=== PATIENT | female | born 1975 | race Two or more races ===

== ENCOUNTER 2018-09-06 13:30 | Emergency (ER) | payer MEDICAID, OTHER ==
[~2018-09-06] VITALS: Ht 134.6 cm; Wt 78.0 kg
--- NOTE | 2018-09-06 13:48 | NUR ---
ED Nurse Note: PT WALKED IN TO ER TODAY FROM HOME. AOX4. PT C/O HEADACHE X 2 WEEKS AGO AFTER FALL IN [place]. PT STATES SHE HIT THE LEFT SIDE OF HER HEAD BUT DENIES ANY LOC. PT STATES SHE WAS SEEN AT [facility] X 2 DAYS AGO AND WAS TOLD SHE WAS CLEARED TO BE DISCHARGED BUT CAME IN TODAY DUE TO PERSISTENT PAIN. PT WOULD LIKE TO MAKE SURE SHE IS OKAY. GAIT STEADY. PT DENIES DIZZINESS, NAUSEA OR VOMITING.
[2018-09-06 13:49] VITALS: BP 118/82
[2018-09-06 14:32] VITALS: BP 122/80
--- NOTE | 2018-09-06 14:33 | Emergency Room Report ---
History of Present Illness General Chief Complaint: Headache Source: Patient Present Illness HPI 43-year-old female presents to the emergency department complaining of 9 out of 10 in severity localized pain, tenderness, swelling and palpable lump to the left parietal area of her scalp. Patient status post mechanical trip and fall where she hit her head 2 weeks ago. Patient states she was evaluated in an emergency department and was discharged with prescription for Tylenol. Patient states that she did not get evaluated until 2 days ago. She denies nausea vomiting, dizziness, visual changes. Patient denies fevers or chills, swollen tender lymph nodes, or purulent discharge. Denies numbness tingling or loss of sensation or gross motor movements of the extremities, incontinence of bowel or bladder. Denies CP, Palpitations, LOC, AMS, weakness or a sudden severe headache. Allergies: Coded Allergies: No Known Allergies (Unverified , 09/06/18) Patient History Past Medical History: see triage record Past Surgical History: none Pertinent Family History: none Last Menstrual Period: now Now: No Reviewed Nursing Documentation: PMH: Agreed; PSxH: Agreed Nursing Documentation-PMH Past Medical History: No Stated History Review of Systems All Other Systems: negative except mentioned in HPI Physical Exam Vital Signs Date Time Temp Pulse Resp B/P (MAP) Pulse Ox O2 Delivery O2 Flow Rate FiO2 09/06/18 13:39 97.9 83 20 114/81 98 09/06/18 13:49 Room Air Sp02 EP Interpretation: reviewed, normal General Appearance: no apparent distress, alert, GCS 15, non-toxic Head: normocephalic, other - palpable superficial mass, somewhat mobile with some erythema, no obvious opening or drainage, no bruising, no evidence of skull fx. Eyes: bilateral eye normal inspection, bilateral eye PERRL ENT: hearing grossly normal, normal voice, TMs + canals normal Neck: full range of motion, no bony tend Respiratory: lungs clear, normal breath sounds, speaking full sentences Cardiovascular #1: regular rate, rhythm Musculoskeletal: back normal, gait/station normal, normal range of motion, non- tender Neurologic: alert, oriented x3, responsive, motor strength/tone normal, sensory intact, normal gait, speech normal, no pronator, other - no facial droop , no gross motor weakness, grossly normal Psychiatric: judgement/insight normal Skin: normal color, warm/dry, well hydrated, other - palpable superficial mass , somewhat mobile with some erythema, no obvious opening or drainage, no bruising, Lymphatic: no adenopathy Medical Decision Making PA Attestation Dr. Swenson is my supervising Physician whom patient management has been discussed with. Diagnostic Impression: Primary Impression: Inflamed epidermoid cyst of skin Additional Impression: Lipoma Qualified Codes: D17.0 - Benign lipomatous neoplasm of skin and subcutaneous tissue of head, face and neck ER Course 43-year-old female presents to the emergency department complaining of 9 out of 10 in severity localized pain, tenderness, swelling and palpable lump to the left parietal area of her scalp. Patient status post mechanical trip and fall where she hit her head 2 weeks ago. Patient states she was evaluated in an emergency department and was discharged with prescription for Tylenol. Patient states that she did not get evaluated until 2 days ago. She denies nausea vomiting, dizziness, visual changes. Patient denies fevers or chills, swollen tender lymph nodes, or purulent discharge. Denies numbness tingling or loss of sensation or gross motor movements of the extremities, incontinence of bowel or bladder. Denies CP, Palpitations, LOC, AMS, weakness or a sudden severe headache. Ddx considered but are not limited to cellulitis, abscess, cystic acne, necrotizing fasciitis, insect bite. Vital signs: are WNL, pt. is afebrile H&PE are most consistent with wither inflamed lipoma or deep epidermoid cyst of the parietal scalp, no evidence to suggest skull fx or acute intracranial pathology. ORDERS: none required at this time, the diagnosis is clinical --She initially really wanted to have had imaging performed I discussed with this patient extensively with a marketing communications leader that I do not feel the benefits of having a CAT scan with very low suspicion of head injury would outweigh the radiation exposure. She later agreed. and CT was canceled. ED INTERVENTIONS: - none required at this time DISCHARGE: At this time pt. is stable for d/c to home. Will provide printed patient care instructions, and any necessary prescriptions. Care plan and follow up instructions have been discussed with the patient prior to discharge. Last Vital Signs Date Time Temp Pulse Resp B/P (MAP) Pulse Ox O2 Delivery O2 Flow Rate FiO2 09/06/18 13:49 98.1 76 18 118/82 99 Room Air Disposition: HOME, SELF-CARE Condition: Stable Scripts Cephalexin* (KEFLEX*) 500 Mg Capsule 500 MG ORAL EVERY 12 HOURS for 7 Days, #14 CAP 0 Refills Prov: Harini Ta 09/06/18 Ibuprofen* (MOTRIN*) 400 Mg Tablet 400 MG ORAL THREE TIMES A DAY, #30 TAB 0 Refills Prov: Harini Ta 09/06/18 Patient Instructions: Epidermal Cyst, [id number], Lipoma Additional Instructions: Take medications as directed. Follow up with a Primary Care Provider in 3-5 days for DERMATOLOGY REFERRAL , even if your symptoms have resolved. --Please review list of primary care clinics, if you do not already have a primary care provider Return sooner to ED if new symptoms occur, or current symptoms become worse. - Please note that this Emergency Department Report was dictated using [employer] chair technology software, occasionally this can lead to erroneous entry secondary to interpretation by the dictation equipment. Harini Ta Sep 06, 2018 14:33
[2018-09-06] MEDS ORDERED: IBUPROFEN400 MG ORAL (14:34)
[2018-09-06] MEDS ORDERED: CEPHALEXIN500 MG ORAL (14:34)
--- NOTE | 2018-09-06 14:40 | NUR ---
ED Nurse Note: PT SITTING PEACEFULLY IN BED IN NAD. AOX4. PRESCRIPTIONS AND DISCHARGE PAPERWORK EXPLAINED TO PT. PT VERBALIZES UNDERSTANDING AND ALL QUESTIONS ANSWERED. PRESCRIPTIONS AND DISCHARGE PAPERWORK GIVEN TO PT AND ID WRISTBAND REMOVED. PT WALKED OUT OF ER WITH STEADY GAIT AND ALL BELONGINGS.
== END 2018-09-06 14:40 | disposition home or self-care (01) ==
LOC: EMR 14:05
DX: L72.0 Epidermal cyst (principal); D17.0 Benign lipomatous neoplasm of skin and subcutaneous tissue of head, face and neck
CPT/HCPCS: 99282

== ENCOUNTER 2018-12-06 17:18 | Emergency (ER) | payer MEDICAID ==
[~2018-12-06] VITALS: Ht 144.8 cm; Wt 65.8 kg
[~2018-12-06 17:18] MED LIST: CEPHALEXIN500 MG ORAL; IBUPROFEN400 MG ORAL
[2018-12-06 17:23] VITALS: BP 125/83
[2018-12-06] MEDS ORDERED: NKM (17:25)
[2018-12-06] MEDS ORDERED: EXCEDRIN MIGRA1 EACH PO (17:53)
--- NOTE | 2018-12-06 17:53 | Emergency Room Report ---
History of Present Illness General Chief Complaint: Headache Source: Patient Present Illness HPI 43-year-old female presents to the emergency department complaining of 7 out of 10 severity soreness to the top of her head she states for 2 months. Patient states she did hit her head 3 months ago she fell she states she had CAT scan done which was normal. Patient denies nausea or vomiting. she reports throbbing sensation and states palpable lump. Patient denies fevers or chills she denies visual changes, dizziness, syncope or alterations in mental status. Patient is neck pain or stiffness. Allergies: Coded Allergies: No Known Allergies (Unverified , 09/06/18) Patient History Past Medical History: see triage record Past Surgical History: none Pertinent Family History: none Now: No Reviewed Nursing Documentation: PMH: Agreed; PSxH: Agreed Nursing Documentation-PMH Past Medical History: No Stated History Review of Systems All Other Systems: negative except mentioned in HPI Physical Exam Vital Signs Date Time Temp Pulse Resp B/P (MAP) Pulse Ox O2 Delivery O2 Flow Rate FiO2 12/06/18 17:23 97.9 78 20 125/83 (97) 98 Room Air Sp02 EP Interpretation: reviewed, normal General Appearance: no apparent distress, alert, GCS 15, non-toxic Head: normocephalic, atraumatic, other - palpable mole that most likely is painful/tender secondary to persistent digital manipulation by the pt. NO neurological deficits, No temporal tenderness. no evidence of infection. Eyes: bilateral eye normal inspection, bilateral eye PERRL ENT: hearing grossly normal, normal voice Neck: full range of motion, no meningismus Respiratory: lungs clear, normal breath sounds, speaking full sentences Cardiovascular #1: regular rate, rhythm Rectal: deferred Genitourinary: normal inspection Musculoskeletal: back normal, gait/station normal, normal range of motion, non- tender Neurologic: alert, oriented x3, responsive, motor strength/tone normal, sensory intact, normal gait, speech normal, grossly normal Psychiatric: judgement/insight normal Skin: normal color, no rash, warm/dry, well hydrated, other - palpable mole that most likely is painful/tender secondary to persistent digital manipulation by the pt. NO neurological deficits, No temporal tenderness. no evidence of infection. Lymphatic: no adenopathy Medical Decision Making PA Attestation Dr. Rincon Is my supervising Physician whom patient management has been discussed with. Diagnostic Impression: Primary Impression: Scalp pain Additional Impression: Head pain Qualified Codes: R51 - Headache ER Course 43-year-old female presents to the emergency department complaining of 7 out of 10 severity soreness to the top of her head she states for 2 months. Patient states she did hit her head 3 months ago she fell she states she had CAT scan done which was normal. Patient denies nausea or vomiting. she reports throbbing sensation and states palpable lump. Patient denies fevers or chills she denies visual changes, dizziness, syncope or alterations in mental status. Patient is neck pain or stiffness. Ddx considered but are not limited to migraine, SAH, Pseudomotor Cerebri,, Mass lesion, Cluster RILEY, Tension RILEY, Post lumbar puncture RILEY, contusion, trigeminal neuralgia, temporal arteritis, mole, cellulitis, abscess, lipoma Vital signs: are WNL, pt. is afebrile H&PE are most consistent with palpable mole that most likely is painful/tender secondary to persistent digital manipulation by the pt. NO neurological deficits , No temporal tenderness. no evidence of infection. ORDERS: - none required at this time, dx is clinical. ED INTERVENTIONS: - pt declines motrin. -I do not identify an emergent condition at this time. With current presentation , pt. is stable for close outpatient follow up and conservative treatment. D/ w pt. to return promptly to ED with worsening or new symptoms.- Pt. verbalizes' understanding and agreement with proposed treatment plan. DISCHARGE: At this time pt. is stable for d/c to home. Will provide printed patient care instructions, and any necessary prescriptions. Care plan and follow up instructions have been discussed with the patient prior to discharge. Last Vital Signs Date Time Temp Pulse Resp B/P (MAP) Pulse Ox O2 Delivery O2 Flow Rate FiO2 12/06/18 17:23 97.9 78 20 125/83 98 Room Air Status: improved Disposition: HOME, SELF-CARE Condition: Stable Scripts Aspirin/Acetaminophen/Caffeine (EXCEDRIN MIGRAINE GELTAB) 1 Each Tablet 1 EACH PO Q6HR, #30 TAB Prov: Harini Ta 12/06/18 Patient Instructions: Medical Screening Exam, General Headache Without Cause Additional Instructions: Take medications as directed. Follow up with a Primary Care Provider in 3-5 days For a referral to have NEUROLOGIST and CORK WIRER Evaluation, even if your symptoms have resolved. * * Return sooner to ED if new symptoms occur, or current symptoms become worse. - Please note that this Emergency Department Report was dictated using [employer] assistant technology software, occasionally this can lead to erroneous entry secondary to interpretation by the dictation equipment. Harini Ta Dec 06, 2018 17:53
== END 2018-12-06 18:03 | disposition home or self-care (01) ==
LOC: EMR 17:48
DX: R51 Headache (principal)
CPT/HCPCS: 99282

== ENCOUNTER 2019-04-18 10:52 | Emergency (ER) | payer MEDICAID ==
[~2019-04-18] VITALS: Ht 152.4 cm; Wt 81.6 kg
[~2019-04-18 10:52] MED LIST changes: +EXCEDRIN MIGRA1 EACH PO; +NKM
[2019-04-18 10:55] VITALS: BP 132/89
--- NOTE | 2019-04-18 11:05 | NUR ---
ED Nurse Note: PT CAME IN DUE TO LEFT SIDE BODY PAIN X 20 DAYS. DENIES INJURY. TAKES NAPROXEN FOR PAIN BUT UNABLE TO RELIEVE IT. AAO X4, AMBULATORY.
[2019-04-18] MEDS ORDERED: PRILOSEC OTC20 MG ORAL (13:08)
[2019-04-18] MEDS ORDERED: DICYCLOMINE HCL20 M1 PO (13:08)
[2019-04-18 13:15] VITALS: BP 125/82
--- NOTE | 2019-04-18 13:15 | NUR ---
ER DISCHARGE NOTE: Patient is cleared to be discharged per ERMD, pt is aox4, on room air, with stable vital signs. pt was given dc and prescription instructions, pt was able to verbalize understanding, pt id band removed without complications. pt is able to ambulate with steady gait. pt took all belongings.
--- NOTE | 2019-04-18 14:07 | Diagnostic Imaging Report ---
Indication: Left sided rib pain. Trauma. Findings: 4 views of the left chest wall was obtained for evaluation of the ribs. There is no acute fracture identified. There is no soft tissue swelling demonstrated. The lung is essentially clear. There is no pneumothorax. The costophrenic angle is sharp. Other osseous structures visualized are unremarkable. Impression: Negative left unilateral rib series
--- NOTE | 2019-04-18 21:47 | Emergency Room Report ---
History of Present Illness General Chief Complaint: Pain Source: Patient Present Illness HPI Patient presented for pain to left side of upper abdomen and back. No change with exertion. Some increase with position. Allergies: Coded Allergies: No Known Allergies (Unverified , 09/06/18) Patient History Past Medical History: see triage record Last Menstrual Period: 04/18/19 Now: No Reviewed Nursing Documentation: PMH: Agreed; PSxH: Agreed Nursing Documentation-PMH Past Medical History: No Stated History Review of Systems All Other Systems: negative except mentioned in HPI Physical Exam Vital Signs Date Time Temp Pulse Resp B/P (MAP) Pulse Ox O2 Delivery O2 Flow Rate FiO2 04/18/19 10:55 98.2 83 16 132/89 (103) 98 Room Air General Appearance: well appearing, no apparent distress, alert, GCS 15, obese Head: normocephalic, atraumatic ENT: hearing grossly normal, normal voice Neck: full range of motion, supple Respiratory: no respiratory distress, speaking full sentences Musculoskeletal: no calf tenderness Neurologic: normal inspection, alert, oriented x3, responsive, hr administrative assistant III-XII nml as tested, motor strength/tone normal, normal gait Psychiatric: mood/affect normal Skin: no rash Medical Decision Making Diagnostic Impression: Primary Impression: Chest wall pain Last Vital Signs Date Time Temp Pulse Resp B/P (MAP) Pulse Ox O2 Delivery O2 Flow Rate FiO2 04/18/19 13:15 98.2 80 16 125/82 98 Room Air Status: improved Disposition: HOME, SELF-CARE Condition: Stable Scripts Dicyclomine Hcl (DICYCLOMINE HCL) 20 Mg Tablet 20 MG PO EVERY 6 HOURS, #30 TAB Prov: Juan Carlos Sales MD 04/18/19 Omeprazole Magnesium (PRILOSEC OTC) 20 Mg Tablet. 20 MG ORAL DAILY, #30 TAB Prov: Juan Carlos Sales MD 04/18/19 Patient Instructions: Chest Wall Pain Additional Instructions: Follow up with your doctor for recheck in 1-2 days Juan Carlos Sales MD Apr 18, 2019 21:47
== END 2019-04-18 13:15 | disposition home or self-care (01) ==
LOC: EMR 12:00
DX: R07.89 Other chest pain (principal)
CPT/HCPCS: 71101; Z7502; 99283

== ENCOUNTER 2020-04-18 09:29 | Emergency (ER) | payer MEDICAID, OTHER ==
[~2020-04-18] VITALS: Ht 149.9 cm; Wt 77.6 kg
[~2020-04-18 09:29] MED LIST changes: +DICYCLOMINE HCL20 M1 PO; +PRILOSEC OTC20 MG ORAL
[2020-04-18 09:47] VITALS: BP 117/74
--- NOTE | 2020-04-18 09:49 | Emergency Room Report ---
History of Present Illness General Chief Complaint: Pain Source: Patient Present Illness HPI 45-year-old female here with right-sided neck pain for 3 months. Patient says that for the past 3 months there is a spot of right-sided neck soreness just inferior to her mandible. She says that she has already followed up with a primary care physician and was given antibiotics previously. Says that she feels the pain intermittently, sore nature. Has not taken any medication for the pain. Has not had any difficulty with breathing or eating. No shortness of breath. No tongue or lip swelling. Says the pain comes and goes. It is worse on palpation. Has not had any imaging performed. Allergies: Coded Allergies: No Known Allergies (Unverified , 09/06/18) COVID-19 Screening Contact w/high risk pt: No Experienced COVID-19 symptoms?: No COVID-19 Testing performed STRAW HAT WASHER OPERATOR: No Patient History Now: No Nursing Documentation-[facility] Past Medical History: No Stated History Review of Systems All Other Systems: negative except mentioned in HPI Physical Exam Vital Signs Date Time Temp Pulse Resp B/P (MAP) Pulse Ox O2 Delivery O2 Flow Rate FiO2 04/18/20 09:33 98.4 81 17 117/74 (88) 99 Room Air Sp02 EP Interpretation: reviewed, normal General Appearance: no apparent distress, alert, non-toxic Head: normocephalic, atraumatic Eyes: bilateral eye normal inspection, bilateral eye PERRL ENT: hearing grossly normal, normal pharynx, no angioedema, normal voice Neck: full range of motion, supple/symm/no masses, other - Small right-sided submandibular lymph node palpable. Subjective mild tenderness on palpation. No lymphadenopathy. Normal range of motion. No meningismus Respiratory: chest non-tender, lungs clear, normal breath sounds, speaking full sentences Cardiovascular #1: regular rate, rhythm, no edema Cardiovascular #2: 2+ carotid (R), 2+ carotid (L), 2+ radial (R), 2+ radial (L), 2+ dorsalis pedis (R), 2+ dorsalis pedis (L) Gastrointestinal: normal bowel sounds, non tender, soft, non-distended, no guarding, no rebound Rectal: deferred Genitourinary: normal inspection, no CVA tenderness Musculoskeletal: back normal, normal range of motion, calf tenderness, gait/s tation normal, non-tender Neurologic: alert, motor strength/tone normal, oriented x3, sensory intact, responsive, speech normal Psychiatric: judgement/insight normal, memory normal, mood/affect normal, no suicidal/homicidal ideation Reflexes: 3+ bicep (R), 3+ bicep (L), 3+ tricep (R), 3+ tricep (L), 3+ knee (R), 3+ knee (L) Lymphatic: no adenopathy Medical Decision Making Diagnostic Impression: Primary Impression: Neck pain ER Course 45-year-old female here with right-sided neck pain. The patient was hemodynamically stable and neurovascularly intact in the emergency department. She had normal range of motion of her neck and a small point of tenderness on her right submandibular region. Physical exam revealed that a small lymph node in this region. Patient denies any difficulty with swallowing or eating. She had normal vital signs in the emergency department. X-ray soft tissue neck revealed a round radiolucent object in the right neck just anterior to the vertebral body of C5. CT of the neck however did not reveal any acute abnormalities. Patient did have a small 1 cm benign-appearing thyroid nodule. This information was expressed to the patient who said that she will follow-up with her primary care physician in 2 days. Patient was told to come back to the emergency department if she has any fevers, chills, difficulty swallowing, difficulty breathing, palpitations, chest pain, diaphoresis. She expressed understanding and was discharged. Last Vital Signs Date Time Temp Pulse Resp B/P (MAP) Pulse Ox O2 Delivery O2 Flow Rate FiO2 04/18/20 09:33 98.4 81 17 117/74 (88) 99 Room Air Scripts Phenyleph/Pramoxin/Glycr/W.pet (PREPARATION H CREAM) 26 Gm Cream..g. 26 GM RC DAILY for 10 Days, GM Prov: Tacos Garcia M.D. 04/18/20 Tacos Garcia M.D. Apr 18, 2020 09:49
[2020-04-18] MEDS ORDERED: Omnipaque-300 100ml vial INJ ONE (10:30)
[2020-04-18 10:54] LABS: BASOPHILS % (AUTO) 1.1 % (0.0-2.0); EOSINOPHILS % (AUTO) 1.6 % (0.0-3.0); HEMATOCRIT 36.4 % (37.0-47.0); HEMOGLOBIN 11.3 G/DL (12.0-16.0); LYMPHOCYTES % (AUTO) 50.5 % (20.0-45.0); MEAN CORPUSCULAR VOLUME 70 FL (80-99); MONOCYTES % (AUTO) 5.5 % (1.0-10.0); NEUTROPHILS % (AUTO) 41.3 % (45.0-75.0); PLATELET COUNT 450 K/UL (150-450); RED BLOOD COUNT 5.18 M/UL (4.20-5.40); RED CELL DISTRIBUTION WIDTH 17.2 % (11.6-14.8); WHITE BLOOD COUNT 9.5 K/UL (4.8-10.8)
[2020-04-18 11:09] LABS: ANION GAP 7 mmol/L (5-15); BLOOD UREA NITROGEN 10 mg/dL (7-18); CALCIUM 9.3 MG/DL (8.5-10.1); CARBON DIOXIDE 29 MMOL/L (21-32); CHLORIDE 101 MMOL/L (98-107); CREATININE 0.7 MG/DL (0.55-1.30); POTASSIUM 3.4 MMOL/L (3.5-5.1); SODIUM 137 MMOL/L (136-145)
[2020-04-18 11:42] VITALS: BP 119/78
--- NOTE | 2020-04-18 12:36 | Diagnostic Imaging Report ---
Indication: Right-sided neck pain for 3 months, soreness just inferior to the right mandible. Technique: IV administration nonionic contrast. Spiral acquisitions obtained through the neck. Multiplanar reconstructions were generated. Total dose length product 126 mGycm. CTDIvol(s) 52, 64, 14 mGy. Dose reduction achieved using automated exposure control Comparison: none Findings: The salivary glands are symmetrical, unremarkable. No cervical mass or adenopathy demonstrated. The nasopharynx, oropharynx, hypopharynx and larynx are all unremarkable. There is questionably a subcentimeter nodule within the right thyroid lobe, although this may just be beam hardening artifact. The visualized sinuses are clear. The bones are unremarkable. The included intracranial structures are unremarkable. The dentition is grossly intact. Impression: Essentially unremarkable exam. No findings to suggest etiology of stated clinical history right-sided neck pain. Questionable right lobe thyroid nodule, under 1 cm if real, no further follow-up necessary The CT scanner at [facility] is accredited by the [employer] and the scans are performed using protocols designed to limit radiation exposure to as low as reasonably achievable to attain images of sufficient resolution adequate for diagnostic evaluation.
[2020-04-18] MEDS ORDERED: PREPARATION H C26 GM RC (13:23)
[2020-04-18 13:30] VITALS: BP 119/78
--- NOTE | 2020-04-18 15:27 | Diagnostic Imaging Report ---
Indication: Cervical spine pain Technique: 2 views of the neck with soft tissue technique Comparison: none Findings: No prevertebral soft tissue swelling. No prevertebral soft tissue swelling. No epiglottic enlargement. The cervical spine appears unremarkable. Round object overlying the right side of the neck on the PA view is presumably external to the patient but may obscure pathology. This is demonstrated be posterior on subsequent CT scan Impression: Negative
== END 2020-04-18 13:30 | disposition home or self-care (01) ==
LOC: EMR 09:50
DX: M54.2 Cervicalgia (principal); E04.1 Nontoxic single thyroid nodule
CPT/HCPCS: 36415; 70360; 70491; 80048; 84703; 85025; Q9967; Z7502; 99284